=== PATIENT | male | born 2000 | race Caucasian/White ===

== ENCOUNTER 2019-11-13 19:33 | Emergency (ER) | payer OTHER ==
[~2019-11-13] VITALS: Ht 185.4 cm; Wt 106.6 kg
[2019-11-13 19:38] VITALS: Ht 185.4 cm; Wt 106.6 kg
[2019-11-13 20:54] VITALS: BP 130/74
== END 2019-11-13 20:54 | disposition home or self-care (01) ==
LOC: ED 19:33
DX: S93.402A Sprain of unspecified ligament of left ankle, initial encounter (principal); M79.601 Pain in right arm; W01.0XXA Fall on same level from slipping, tripping and stumbling without subsequent striking against object, initial encounter; Y93.89 Activity, other specified; Y92.89 Other specified places as the place of occurrence of the external cause; Y99.8 Other external cause status

== ENCOUNTER 2020-07-13 19:53 | Emergency (ER) | payer MEDICAID ==
[~2020-07-13] VITALS: Ht 185.4 cm; Wt 122.5 kg
[2020-07-13 20:10] VITALS: Ht 185.4 cm; Wt 122.5 kg
[2020-07-13] MEDS ORDERED: AMO500 PO (20:28)
[2020-07-13 20:49] VITALS: BP 124/89
== END 2020-07-13 20:49 | disposition home or self-care (01) ==
LOC: ED 19:53
DX: K04.7 Periapical abscess without sinus (principal)